=== PATIENT | male | born 1990 | race Caucasian/White ===

== ENCOUNTER 2020-11-27 20:40 | Emergency (ER) | payer SELFPAY ==
[~2020-11-27] VITALS: Ht 162.6 cm; Wt 91.2 kg
[2020-11-27 21:04] VITALS: BP 142/88
--- NOTE | 2020-11-27 21:59 | NUR ---
PT AMBULATED TO BED #11
--- NOTE | 2020-11-27 22:17 | NUR ---
30/M PATIENT BIB SELF FOR C/O RASH OVER UE, LE AND ABDOMEN X 1 MONTH. PT ALSO COMPLAINING OF ITCHYNESS. PT STATES HE TOOK BENADRL, CLARITIN, STEROIDS BUT NOT EFFECTIVE DENIES PMH NKDA
--- NOTE | 2020-11-27 22:20 | NUR ---
DR. GODDARD AT BEDSIDE EXAMINING PATIENT
[2020-11-27] MEDS ORDERED: PRED20TA5 PO (22:28)
[2020-11-27] MEDS ORDERED: CETI10TA81 PO (22:28)
[2020-11-27] MEDS ORDERED: FAMO20TA13 PO (22:28)
[2020-11-27] MEDS ORDERED: FAMOTIDINE 20 MG TAB PO ONE (22:30)
[2020-11-27] MEDS ORDERED: predniSONE 20 MG TAB PO ONE (22:30)
[2020-11-27 22:47] VITALS: BP 142/88
--- NOTE | 2020-11-27 22:47 | NUR ---
Patient discharged with v/s stable. Written and verbal after care instructions given and explained. Patient alert, oriented and verbalized understanding of instructions. Ambulatory with steady gait. All questions addressed prior to discharge. ID band removed. Patient advised to follow up with PMD. Rx of ZYRTEC, PEPCID, DELTASONE given. Patient educated on indication of medication including possible reaction and side effects. Opportunity to ask questions provided and answered.
== END 2020-11-27 22:47 | disposition home or self-care (01) ==
LOC: MED 20:40
DX: L50.0 Allergic urticaria (principal); Z79.899 Other long term (current) drug therapy
CPT/HCPCS: 99283; J7512